=== PATIENT | female | born 1950 | race Caucasian/White ===

== ENCOUNTER 2017-08-30 05:30 | Inpatient (IN) ==
[2017-08-31] MEDS ORDERED: SODIUM CHLORIDE 0.9% 1,000 ML IV PRN (11:56)
[2017-08-31 12:19] LABS: Basophils % 0.6 % (0.0-0.8); Eosinophils # 0.1 10*3/uL (0.0-0.87); Eosinophils % 1.5 % (0.00-10.9); Hematocrit 37.4 VOL% (35.7-47.0); Hemoglobin 12.1 GM/DL (12.0-16.0); Immature Granulocytes % 0.4 %; Immature Granulocytes Absolute 0.03 #; Lymphocytes # 1.4 10*3/uL (1.4-4.0); Lymphocytes % 18.9 % (21.3-54.2); Mean Corpuscular HGB Conc 32.4 GM/DL (32-36); Mean Corpuscular Hemoglobin 30 PG (27-34); Mean Corpuscular Volume 93.7 FL (87-102); Mean Platelet Volume 12.1 FL (9.6-12.0); Monocytes # 0.4 10*3/uL (0.11-0.8); Monocytes % 5.7 % (1.7-12.7); Neutrophils # 5.2 10*3/uL (1.4-7.4); Neutrophils % 72.9 % (38.7-73.9); Platelet Count 214 T/CUMM (130-400); Red Blood Count 3.99 MC/CUMM (3.8-5.5); Red Cell Distribution Width 13.9 % (9.3-17.3); White Blood Count 7.2 T/CUMM (4-12)
[2017-08-31 12:29] LABS: INR 1.1; PT Patient Result 11.4 SECS; Partial Thromboplastin Time 24.3 SECS (0-40)
[2017-08-31 12:38] LABS: Apearance,Urine CLOUDY (Clear); Bacteria,Urine Many /HPF (Few); Bilirubin,Urine Negative (Negative); Blood, Urine Small mg/dL (Negative); Glucose,Urine (UA) 50 mg/dL (Negative); Hyaline Casts,Urine 25 /LPF (0-3); Ketones,Urine 5 mg/dL (Negative); Mucus,Urine Moderate /LPF (Occasional); Nitrite,Urine Negative (Negative); Protein,Urine 100 MG/DL; RBC,Urine 9 /HPF (0-4); Squamous Epithelial Cell,Urine Many /HPF (0-10); Urine Color Amber (Yellow); Urine Specific Gravity 1.028 (1.001-1.035); WBC,Urine 9 /HPF (0-6)
[2017-08-31 12:57] LABS: Calcium 7.8 MG/DL (8.5-10.1); Osmolality,Calculated 287.1 MOS/KG (273-304)
[2017-08-31 13:08] LABS: Potassium 2.1 MMOL/L (3.5-5.1)
[2017-08-31] MEDS ORDERED: CEFUROXIME INJ 1,500 MG in SODIUM CHLORIDE 0.9% 100 ML IV ONE (13:31)
[2017-08-31] MEDS ORDERED: SODIUM CHLORIDE 0.9% 1,000 ML IV SCH (14:00)
[2017-08-31] MEDS: POTASSIUM CHLORIDE 20 MEQ TABLET PO SCH ×7 (16:22→22:36)
[2017-08-31] MEDS ORDERED: MAGNESIUM SULF RIDER 4 GM in PREMIX 1 EACH IV ONE (17:30)
[2017-08-31] MEDS: POTASSIUM CHLORIDE RIDER 10 MEQ in PREMIX 1 EACH IV SCH ×2 (19:52→22:33)
[2017-08-31] MEDS: CHLORHEXIDINE 0.12% ORAL RINSE 60 ML BOTTLE SWISH/SPIT SCH (20:50)
[2017-08-31] MEDS: CHLORHEXIDINE 4% SOLN 118 ML BOTTLE TOP SCH (22:35)
[2017-08-31] MEDS ORDERED: hydrALAZINE 20 MG/1 ML VIAL IV ONE (23:30)
[2017-09-01] MEDS ORDERED: CLORAZEPATE 3.75 MG TABLET PO PRN (00:53)
[2017-09-01] MEDS ORDERED: ALBUTEROL/IPRATROPIUM 3 ML NEB RESP TX PRN (00:55)
[2017-09-01 01:16] LABS: Basophils % 0.5 % (0.0-0.8); Eosinophils # 0.2 10*3/uL (0.0-0.87); Eosinophils % 2.2 % (0.00-10.9); Hematocrit 39.1 VOL% (35.7-47.0); Hemoglobin 12.7 GM/DL (12.0-16.0); Immature Granulocytes % 0.5 %; Immature Granulocytes Absolute 0.04 #; Lymphocytes # 1.7 10*3/uL (1.4-4.0); Lymphocytes % 19.6 % (21.3-54.2); Mean Corpuscular HGB Conc 32.5 GM/DL (32-36); Mean Corpuscular Hemoglobin 30 PG (27-34); Mean Corpuscular Volume 91.1 FL (87-102); Monocytes # 0.5 10*3/uL (0.11-0.8); Neutrophils % 71.2 % (38.7-73.9); Platelet Count 222 T/CUMM (130-400); Red Blood Count 4.29 MC/CUMM (3.8-5.5); Red Cell Distribution Width 14.1 % (9.3-17.3); White Blood Count 8.5 T/CUMM (4-12)
[2017-09-01 01:44] LABS: Calcium 8.7 MG/DL (8.5-10.1); Potassium 2.9 MMOL/L (3.5-5.1)
[2017-09-01 03:14] LABS: ABG Base Excess 12.6 MMOL/L (-2.5-2.5); ABG HCO3 36.4 MMOL/L (20-26); ABG PCO2 42.9 MM HG (35-48); ABG PH 7.541 (7.35-7.45); ABG PO2 64.6 MM HG (80-95); Allen Test Positive
[2017-09-01] MEDS ORDERED: hydrALAZINE 20 MG/1 ML VIAL IV ONE (04:30)
[2017-09-01] MEDS ORDERED: DIAZEPAM 5 MG TABLET PO ONE (05:00)
[2017-09-01] MEDS ORDERED: FAMOTIDINE 20 MG TABLET PO ONE (05:00)
[2017-09-01] MEDS ORDERED: ONDANSETRON 4 MG/2 ML VIAL IM ONE (05:00)
[2017-09-01] MEDS ORDERED: TISSUE ADHESIVE 1 EACH APPLICATOR TOP ONE (05:24)
[2017-09-01] MEDS ORDERED: VANCOMYCIN 1,000 MG VIAL ONE (05:24)
[2017-09-01] MEDS ORDERED: PAPAVERINE 60 MG/2 ML VIAL ONE (05:24)
[2017-09-01 07:50] LABS: ABG Base Excess 9.9 MMOL/L (-2.5-2.5); ABG HCO3 33.7 MMOL/L (20-26); ABG PCO2 38.2 MM HG (35-48); ABG PH 7.548 (7.35-7.45); ABG TCO2 29.8 MMOL/L (23-27); Glucose Heart Surgery 158 MG/DL (74-106); Hematocrit Heart Surgery 32.5 PERCENT (37-47); Hemoglobin Heart Surgery 10.5 G/DL (12.0-16.0); Ionized Calcium Arterial 0.98 MMOL/L (1.21-1.46); PCO2 Patient Temp Arterial 38.2 MMHG; PH Patient Temp Arterial 7.548; Patient Temperature 37 CELCIUS; Sodium Heart/CVR 146 MMOL/L (135-145)
[2017-09-01 07:51] LABS: Potassium Heart/CVR 1.9 MMOL/L (3.5-5.1)
[2017-09-01] MEDS ORDERED: AZTREONAM 2,000 MG in SYRINGE 1 EACH IV ONE (08:00)
[2017-09-01 08:15] LABS: Apearance,Urine Slightly Hazy (Clear); Bilirubin,Urine Negative (Negative); Blood, Urine Negative (Negative); Glucose,Urine (UA) 50 mg/dL (Negative); Granular Casts,Urine 1 /LPF (0-1); Hyaline Casts,Urine 35 /LPF (0-3); Ketones,Urine Negative (Negative); Mucus,Urine Occasional /LPF (Occasional); Nitrite,Urine Negative (Negative); Protein,Urine 100 MG/DL; RBC,Urine 5 /HPF (0-4); Urine Color Amber (Yellow); Urine Specific Gravity 1.024 (1.001-1.035); WBC,Urine 2 /HPF (0-6)
[2017-09-01] MEDS ORDERED: CALCIUM CHLORIDE 1,000 MG/10 ML SYRINGE IV ONE (08:26)
[2017-09-01] MEDS ORDERED: ALBUMIN 5% 12.5 GM/250 ML VIAL IV ONE (08:26)
[2017-09-01] MEDS ORDERED: PHENYLEPHRINE DRIP 0 MG/0 ML PREMIX IV ONE (08:28)
[2017-09-01 09:22] LABS: Hemoglobin Heart Surgery 6.9 G/DL (12.0-16.0); PCO2 Patient Temp Venous 30.3 MM HG; PH Patient Temp Venous 7.659; PO2 Patient Temp Venous 37.2 MM HG; Potassium Heart/CVR 2.6 MMOL/L (3.5-5.1); VBG Base Excess 11.7 MEQ/L (0-4); VBG HCO3 34.1 MEQ/L (24-28); VBG Oxygen Saturation 83.1 %; VBG PCO2 34.6 MMHG (41-51); VBG PH 7.611; VBG PO2 45.9 MMHG (17-40)
[2017-09-01 09:52] LABS: Hemoglobin Heart Surgery 6.7 G/DL (12.0-16.0); PCO2 Patient Temp Venous 29.4 MM HG; PO2 Patient Temp Venous 35.5 MM HG; VBG HCO3 35.6 MEQ/L (24-28); VBG Oxygen Saturation 86.2 %; VBG PH 7.613; VBG PO2 43.7 MMHG (17-40)
[2017-09-01 09:53] LABS: PH Patient Temp Venous 7.661; Potassium Heart/CVR 2.5 MMOL/L (3.5-5.1)
[2017-09-01] MEDS: CHLORHEXIDINE 4% SOLN 118 ML BOTTLE TOP SCH (10:12)
[2017-09-01] MEDS: CHLORHEXIDINE 0.12% ORAL RINSE 60 ML BOTTLE SWISH/SPIT SCH ×2 (10:12→20:36)
[2017-09-01] MEDS ORDERED: THROMBIN TOPICAL (RECOMBINANT) 5,000 UNIT VIAL TOP ONE (10:38)
[2017-09-01 10:45] LABS: ABG Base Excess 5.8 MMOL/L (-2.5-2.5); ABG HCO3 29.7 MMOL/L (20-26); ABG PCO2 36.3 MM HG (35-48); ABG PH 7.512 (7.35-7.45); ABG TCO2 26.7 MMOL/L (23-27); Glucose Heart Surgery 237 MG/DL (74-106); Hematocrit Heart Surgery 27.2 PERCENT (37-47); Hemoglobin Heart Surgery 8.8 G/DL (12.0-16.0); Ionized Calcium Arterial 1.08 MMOL/L (1.21-1.46); PCO2 Patient Temp Arterial 36.3 MMHG; PH Patient Temp Arterial 7.512; Patient Temperature 37 CELCIUS; Potassium Heart/CVR 2.9 MMOL/L (3.5-5.1); Sodium Heart/CVR 139 MMOL/L (135-145)
[2017-09-01] MEDS ORDERED: HEPARIN 10,000 UNIT/10 ML VIAL ONE (10:53)
[2017-09-01] MEDS ORDERED: PROTAMINE SULFATE 250 MG/25 ML VIAL IV ONE ×2 (10:53→11:46)
[2017-09-01] MEDS ORDERED: DEXTROSE 5% KCL 20 MEQ 20 MEQ/1,000 ML BAG IV ONE (10:53)
[2017-09-01] MEDS ORDERED: SODIUM BICARBONATE 50 MEQ/50 ML SYRINGE IV ONE (10:53)
[2017-09-01] MEDS ORDERED: ALBUMIN 25% 25 GM/100 ML VIAL IV ONE (10:53)
[2017-09-01] MEDS ORDERED: MAGNESIUM SULFATE 1 GM/2 ML VIAL ONE (10:53)
[2017-09-01] MEDS ORDERED: methylPREDNISolone SOD SUC 1,000 MG/8 ML VIAL ONE (10:53)
[2017-09-01] MEDS ORDERED: PROTAMINE SULFATE 50 MG/5 ML VIAL IV ONE ×2 (10:54→11:46)
[2017-09-01] MEDS ORDERED: FUROSEMIDE 20 MG/2 ML VIAL ONE ×2 (10:54→11:44)
[2017-09-01] MEDS ORDERED: MANNITOL 12.5 GM/50 ML VIAL IV ONE (10:54)
[2017-09-01] MEDS ORDERED: POTASSIUM CHLORIDE 20 MEQ/10 ML VIAL ONE (10:54)
[2017-09-01] MEDS ORDERED: PHENYLEPHRINE 10 MG/1 ML VIAL IV ONE ×2 (10:54→11:45)
[2017-09-01] MEDS ORDERED: DOBUTamine 500 MG/250 ML PREMIX IV ONE ×2 (11:01→11:50)
[2017-09-01] MEDS ORDERED: MIDAZOLAM 2 MG/2 ML VIAL IV PRN (11:41)
[2017-09-01] MEDS ORDERED: MAGNESIUM SULF RIDER 2 GM in PREMIX 1 EACH IV PRN (11:41)
[2017-09-01] MEDS ORDERED: SODIUM CHLORIDE 0.45% 1,000 ML IV SCH ×2 (11:41)
[2017-09-01] MEDS ORDERED: POTASSIUM CHLORIDE RIDER 10 MEQ in PREMIX 1 EACH IV PRN (11:41)
[2017-09-01] MEDS ORDERED: CHLORHEXIDINE 4% SOLN 118 ML BOTTLE TOP PRN (11:41)
[2017-09-01] MEDS ORDERED: ACETAMINOPHEN 650 MG SUPP RECTAL PRN (11:41)
[2017-09-01] MEDS ORDERED: INSULIN REGULAR 100 UNIT/ML IV PRN (11:41)
[2017-09-01] MEDS ORDERED: ONDANSETRON 4 MG/2 ML VIAL IV PRN (11:41)
[2017-09-01] MEDS ORDERED: DEXTROSE 50% 25 GM/50 ML VIAL IV PRN ×2 (11:41)
[2017-09-01] MEDS ORDERED: MAGNESIUM SULF RIDER 4 GM in PREMIX 1 EACH IV PRN (11:41)
[2017-09-01] MEDS ORDERED: POTASSIUM CHLORIDE RIDER 20 MEQ in PREMIX 1 EACH IV PRN (11:41)
[2017-09-01] MEDS ORDERED: SODIUM CHLORIDE 0.9% 250 ML IV PRN (11:41)
[2017-09-01] MEDS ORDERED: MORPHINE 10 MG/1 ML VIAL IV PRN (11:41)
[2017-09-01] MEDS ORDERED: CALCIUM CHLORIDE 1,000 MG/10 ML SYRINGE IV PRN (11:41)
[2017-09-01] MEDS ORDERED: INSULIN REGULAR DRIP 100 ML IV SCH (11:41)
[2017-09-01] MEDS ORDERED: SEVOFLURANE 1 UNIT/15 MINUTE INH ONE (11:43)
[2017-09-01] MEDS ORDERED: TRANEXAMIC ACID 1,000 MG/10 ML VIAL IV ONE (11:44)
[2017-09-01] MEDS ORDERED: MIDAZOLAM 10 MG/2 ML VIAL ONE (11:44)
[2017-09-01] MEDS ORDERED: SUFentanil 250 MCG/5 ML AMP ONE (11:44)
[2017-09-01] MEDS ORDERED: ETOMIDATE 40 MG/20 ML VIAL IV ONE (11:45)
[2017-09-01] MEDS ORDERED: NITROGLYCERIN DRIP 50 MG/250 ML BOTTLE IV ONE ×2 (11:45→13:30)
[2017-09-01] MEDS ORDERED: VECURONIUM 10 MG VIAL IV ONE (11:45)
[2017-09-01] MEDS ORDERED: CALCIUM CHLORIDE 1,000 MG/10 ML VIAL IV ONE (11:46)
[2017-09-01] MEDS ORDERED: PROPOFOL 1,000 MG/100 ML BOTTLE IV SCH ×2 (12:00→12:30)
[2017-09-01] MEDS ORDERED: DOBUTamine 500 MG/250 ML PREMIX IV SCH (12:00)
[2017-09-01 12:14] LABS: ABG Base Excess 7.3 MMOL/L (-2.5-2.5); ABG HCO3 31.1 MMOL/L (20-26); ABG Oxygen Saturation 99.1 % (95-100); ABG PCO2 39.6 MM HG (35-48); ABG PH 7.502 (7.35-7.45); ABG TCO2 28.5 MMOL/L (23-27); Glucose Heart Surgery 211 MG/DL (74-106); Hematocrit Heart Surgery 27.8 PERCENT (37-47)
[2017-09-01 12:16] LABS: Potassium Heart/CVR 2.3 MMOL/L (3.5-5.1)
[2017-09-01 12:19] LABS: Basophils % 0.2 % (0.0-0.8); Eosinophils % 0.4 % (0.00-10.9); Hematocrit 26.9 VOL% (35.7-47.0); Immature Granulocytes % 1.2 %; Immature Granulocytes Absolute 0.12 #; Lymphocytes # 0.9 10*3/uL (1.4-4.0); Lymphocytes % 9.2 % (21.3-54.2); Mean Corpuscular HGB Conc 32.7 GM/DL (32-36); Mean Corpuscular Hemoglobin 30 PG (27-34); Mean Corpuscular Volume 91.2 FL (87-102); Mean Platelet Volume 12.5 FL (9.6-12.0); Monocytes # 0.5 10*3/uL (0.11-0.8); Monocytes % 4.5 % (1.7-12.7); Neutrophils # 8.4 10*3/uL (1.4-7.4); Neutrophils % 84.5 % (38.7-73.9); Platelet Count 136 T/CUMM (130-400); White Blood Count 9.9 T/CUMM (4-12)
[2017-09-01 12:20] LABS: Hemoglobin 8.8 GM/DL (12.0-16.0); Red Blood Count 2.95 MC/CUMM (3.8-5.5)
[2017-09-01] MEDS ORDERED: POTASSIUM CHLORIDE RIDER 100 ML IV ONE (12:20)
[2017-09-01] MEDS ORDERED: POTASSIUM CHLORIDE RIDER 20 MEQ in PREMIX 1 EACH IV ONE (12:25)
[2017-09-01 12:26] LABS: INR 1.2; PT Patient Result 12.7 SECS; Partial Thromboplastin Time 27.7 SECS (0-40)
[2017-09-01 12:36] LABS: Blood Urea Nitrogen 13 MG/DL (7-18); Calcium 7.6 MG/DL (8.5-10.1); Glucose 198 MG/DL (74-106); Osmolality,Calculated 291.8 MOS/KG (273-304); Sodium 144 MMOL/L (136-145)
[2017-09-01 12:39] LABS: Potassium 2.4 MMOL/L (3.5-5.1)
[2017-09-01 12:40] LABS: Lactic Acid 3.9 MMOL/L (0.4-2.0)
[2017-09-01] MEDS: NITROGLYCERIN DRIP 50 MG/250 ML BOTTLE IV SCH (13:41)
[2017-09-01] MEDS: CLINDAMYCIN INJ 600 MG in PREMIX 1 EACH IV SCH (13:41)
[2017-09-01] MEDS: POTASSIUM CHLORIDE RIDER 20 MEQ in PREMIX 1 EACH IV SCH ×4 (13:42→19:41)
[2017-09-01] MEDS ORDERED: FUROSEMIDE 40 MG/4 ML VIAL IV ONE (13:52)
[2017-09-01 18:19] LABS: ABG Base Excess 8.9 MMOL/L (-2.5-2.5); ABG HCO3 32.7 MMOL/L (20-26); ABG Oxygen Saturation 98.1 % (95-100); ABG PCO2 45.8 MM HG (35-48); ABG PH 7.474 (7.35-7.45); ABG TCO2 30.5 MMOL/L (23-27); Glucose Heart Surgery 165 MG/DL (74-106); Hematocrit Heart Surgery 30.7 PERCENT (37-47); Hemoglobin Heart Surgery 9.9 G/DL (12.0-16.0); Potassium Heart/CVR 2.6 MMOL/L (3.5-5.1)
[2017-09-01] MEDS: ALBUMIN 5% 12.5 GM in PREMIX 1 EACH IV PRN ×2 (18:30→20:36)
[2017-09-01] MEDS: AZTREONAM 1,000 MG in SYRINGE 1 EACH IV SCH (19:32)
[2017-09-01] MEDS ORDERED: LACTATED RINGERS 1,000 ML IV SCH (23:00)
[2017-09-02] MEDS: MORPHINE 2 MG/1 ML SYRINGE IV PRN ×3 (01:32→20:22)
[2017-09-02] MEDS: CLINDAMYCIN INJ 600 MG in PREMIX 1 EACH IV SCH ×2 (01:35→13:03)
[2017-09-02 03:28] LABS: Basophils % 0.1 % (0.0-0.8); Hematocrit 27.9 VOL% (35.7-47.0); Hemoglobin 9.1 GM/DL (12.0-16.0); Immature Granulocytes % 0.7 %; Immature Granulocytes Absolute 0.12 #; Lymphocytes # 0.8 10*3/uL (1.4-4.0); Lymphocytes % 4.8 % (21.3-54.2); Mean Corpuscular HGB Conc 32.6 GM/DL (32-36); Mean Corpuscular Hemoglobin 30 PG (27-34); Mean Corpuscular Volume 91.5 FL (87-102); Mean Platelet Volume 12.8 FL (9.6-12.0); Monocytes # 0.4 10*3/uL (0.11-0.8); Monocytes % 2.4 % (1.7-12.7); Neutrophils # 15.5 10*3/uL (1.4-7.4); Platelet Count 164 T/CUMM (130-400); Red Blood Count 3.05 MC/CUMM (3.8-5.5); Red Cell Distribution Width 15.7 % (9.3-17.3); White Blood Count 16.8 T/CUMM (4-12)
[2017-09-02 03:53] LABS: Calcium 7.7 MG/DL (8.5-10.1); Osmolality,Calculated 290.7 MOS/KG (273-304); Potassium 2.6 MMOL/L (3.5-5.1)
[2017-09-02 03:57] LABS: Cholesterol < 50 MG/DL (50-200); HDL Cholesterol 22 MG/DL (40-60); Risk Ratio 2.27; Triglycerides 67 MG/DL (2-150); VLDL CHOLESTEROL 13.4 MG/DL
[2017-09-02 04:27] LABS: Band Neutrophils 1 % (0-10); Lymphocytes 5 % (20-55); Platelet Estimate Normal; Segmented Neutrophils 93 % (50-85); Total Cells Counted 100
[2017-09-02 04:28] LABS: ABG HCO3 31.8 MMOL/L (20-26); ABG PCO2 49.1 MM HG (35-48); ABG PH 7.439 (7.35-7.45); ABG TCO2 30.5 MMOL/L (23-27)
[2017-09-02] MEDS: AZTREONAM 1,000 MG in SYRINGE 1 EACH IV SCH ×2 (06:11→20:21)
[2017-09-02] MEDS ORDERED: METOPROLOL TARTRATE 5 MG/5 ML VIAL IV ONE (07:26)
[2017-09-02] MEDS: POTASSIUM CHLORIDE RIDER 20 MEQ in PREMIX 1 EACH IV SCH ×2 (07:56→09:08)
[2017-09-02] MEDS: CHLORHEXIDINE 0.12% ORAL RINSE 60 ML BOTTLE SWISH/SPIT SCH ×2 (08:01→21:47)
[2017-09-02] MEDS: ASPIRIN EC 325 MG TABLET PO SCH (08:01)
[2017-09-02] MEDS ORDERED: DEXTROSE 50% 25 GM/50 ML VIAL IV PRN (08:27)
[2017-09-02] MEDS ORDERED: GLUCAGON 1 MG VIAL IM PRN (08:27)
[2017-09-02] MEDS ORDERED: CARVEDILOL 3.125 MG TABLET PO SCH (09:00)
[2017-09-02] MEDS ORDERED: FUROSEMIDE 40 MG TABLET PO SCH (09:00)
[2017-09-02] MEDS ORDERED: INSULIN LISPRO 100 UNIT/ML SUBCUT SCH (10:00)
[2017-09-02] MEDS ORDERED: MONTELUKAST 10 MG TABLET PO SCH ×2 (10:12→21:00)
[2017-09-02] MEDS: MONTELUKAST 10 MG TABLET PO SCH ×2 (10:26→21:42)
[2017-09-02] MEDS: ALBUTEROL/IPRATROPIUM 3 ML NEB RESP TX SCH ×4 (11:00→23:30)
[2017-09-02] MEDS: INSULIN LISPRO 100 UNIT/ML SUBCUT SCH ×4 (11:50→23:22)
[2017-09-02] MEDS: SPIRONOLACTONE 25 MG TABLET PO SCH ×2 (11:51→21:43)
[2017-09-02] MEDS: POTASSIUM CHLORIDE 20 MEQ/15 ML UDCUP PO SCH ×2 (13:04→16:22)
[2017-09-02] MEDS ORDERED: FUROSEMIDE 40 MG/4 ML VIAL IV ONE ×2 (14:17→22:00)
[2017-09-02] MEDS: NITROGLYCERIN DRIP 50 MG/250 ML BOTTLE IV SCH (14:26)
[2017-09-02] MEDS: ALBUMIN 5% 12.5 GM in PREMIX 1 EACH IV PRN (14:28)
[2017-09-02] MEDS ORDERED: ALBUMIN 5% 12.5 GM in PREMIX 1 EACH IV ONE (15:50)
[2017-09-02 16:16] LABS: ABG Base Excess 5.7 MMOL/L (-2.5-2.5); ABG HCO3 29.6 MMOL/L (20-26); ABG Oxygen Saturation 95.4 % (95-100); ABG PCO2 58.2 MM HG (35-48); ABG PH 7.355 (7.35-7.45); ABG TCO2 30.3 MMOL/L (23-27)
[2017-09-02 16:20] LABS: Hematocrit 27.2 VOL% (35.7-47.0); Hemoglobin 8.5 GM/DL (12.0-16.0); Mean Corpuscular HGB Conc 31.3 GM/DL (32-36); Mean Corpuscular Hemoglobin 30 PG (27-34); Mean Corpuscular Volume 94.8 FL (87-102); Red Blood Count 2.87 MC/CUMM (3.8-5.5); White Blood Count 15.3 T/CUMM (4-12)
[2017-09-02 16:21] LABS: Basophils % 0.1 % (0.0-0.8); Immature Granulocytes % 0.5 %; Immature Granulocytes Absolute 0.08 #; Lymphocytes # 0.8 10*3/uL (1.4-4.0); Lymphocytes % 5.2 % (21.3-54.2); Monocytes # 0.7 10*3/uL (0.11-0.8); Monocytes % 4.3 % (1.7-12.7); Neutrophils # 13.8 10*3/uL (1.4-7.4); Neutrophils % 89.9 % (38.7-73.9); Platelet Count 139 T/CUMM (130-400); Red Cell Distribution Width 15.9 % (9.3-17.3)
[2017-09-02 16:55] LABS: Albumin 2.9 G/DL (3.4-5.0); Bilirubin,Total 0.4 MG/DL (0.2-1.0); Calcium 7.5 MG/DL (8.5-10.1); Osmolality,Calculated 286.4 MOS/KG (273-304); Potassium 3.5 MMOL/L (3.5-5.1); Total Protein 5.1 G/DL (6.4-8.3)
[2017-09-02 18:20] LABS: ABG Base Excess 7.1 MMOL/L (-2.5-2.5); ABG HCO3 33.1 MMOL/L (20-26); ABG Oxygen Saturation 97.4 % (95-100); ABG PCO2 55.9 MM HG (35-48); ABG PO2 107.5 MM HG (80-95); ABG TCO2 34.8 MMOL/L (23-27)
[2017-09-02] MEDS: ATORVASTATIN 40 MG TABLET PO SCH (21:44)
[2017-09-02 22:05] LABS: ABG Base Excess 5.5 MMOL/L (-2.5-2.5); ABG HCO3 29.3 MMOL/L (20-26); ABG Oxygen Saturation 90.4 % (95-100); ABG PCO2 58.5 MM HG (35-48); ABG PH 7.351 (7.35-7.45); ABG PO2 63.3 MM HG (80-95); ABG TCO2 30.1 MMOL/L (23-27)
[2017-09-03] MEDS: ALBUTEROL/IPRATROPIUM 3 ML NEB RESP TX SCH ×6 (02:05→23:16)
[2017-09-03 04:40] LABS: ABG Base Excess 6.2 MMOL/L (-2.5-2.5); ABG Oxygen Saturation 97.8 % (95-100); ABG PCO2 55.1 MM HG (35-48); ABG PH 7.378 (7.35-7.45); ABG PO2 95.9 MM HG (80-95); ABG TCO2 30.2 MMOL/L (23-27)
[2017-09-03 04:46] LABS: Basophils % 0.1 % (0.0-0.8); Hematocrit 26.6 VOL% (35.7-47.0); Hemoglobin 8.2 GM/DL (12.0-16.0); Immature Granulocytes % 0.7 %; Lymphocytes # 1.2 10*3/uL (1.4-4.0); Lymphocytes % 8.6 % (21.3-54.2); Mean Corpuscular HGB Conc 30.8 GM/DL (32-36); Mean Corpuscular Hemoglobin 30 PG (27-34); Mean Corpuscular Volume 96.7 FL (87-102); Monocytes # 0.7 10*3/uL (0.11-0.8); Monocytes % 5.3 % (1.7-12.7); Neutrophils # 11.8 10*3/uL (1.4-7.4); Neutrophils % 85.3 % (38.7-73.9); Platelet Count 136 T/CUMM (130-400); Red Blood Count 2.75 MC/CUMM (3.8-5.5); Red Cell Distribution Width 15.9 % (9.3-17.3); White Blood Count 13.9 T/CUMM (4-12)
[2017-09-03 05:03] LABS: Calcium 7.5 MG/DL (8.5-10.1); Osmolality,Calculated 286.1 MOS/KG (273-304); Potassium 3.3 MMOL/L (3.5-5.1)
[2017-09-03] MEDS: INSULIN LISPRO 100 UNIT/ML SUBCUT SCH ×5 (06:15→20:25)
[2017-09-03] MEDS ORDERED: SODIUM CHLORIDE 0.9% 1,000 ML IV PRN (08:14)
[2017-09-03] MEDS: CHLORHEXIDINE 0.12% ORAL RINSE 60 ML BOTTLE SWISH/SPIT SCH ×2 (08:56→20:27)
[2017-09-03] MEDS: ASPIRIN EC 325 MG TABLET PO SCH (08:56)
[2017-09-03] MEDS: SPIRONOLACTONE 25 MG TABLET PO SCH (08:56)
[2017-09-03] MEDS: CARVEDILOL 3.125 MG TABLET PO SCH (08:56)
[2017-09-03] MEDS ORDERED: KORLYM PO SCH (09:00)
[2017-09-03] MEDS ORDERED: FUROSEMIDE 40 MG/4 ML VIAL IV ONE (09:47)
[2017-09-03] MEDS ORDERED: SPIRONOLACTONE 25 MG TABLET PO ONE (09:47)
[2017-09-03] MEDS ORDERED: SPIRONOLACTONE 25 MG TABLET PO SCH (09:52)
[2017-09-03 11:41] LABS: Hepatitis A Ab IgM Result Negative (Negative); Hepatitis B Core IgM Quant 0.18 Index; Hepatitis B Core IgM Result Negative (Negative); Hepatitis B Surface Ag Quant < 0.10 Index; Hepatitis B Surface Ag Result Negative (Negative); Hepatitis C Virus Ab Quant 0.08 Index; Hepatitis C Virus Ab Result Negative (Negative)
[2017-09-03] MEDS ORDERED: HEPARIN 10,000 UNIT/10 ML VIAL IV PRN (12:41)
[2017-09-03] MEDS ORDERED: ALBUMIN 25% 25 GM in PREMIX 1 EACH IV PRN (12:42)
[2017-09-03] MEDS: NITROGLYCERIN DRIP 50 MG/250 ML BOTTLE IV SCH (13:09)
[2017-09-03 13:58] LABS: ABG Base Excess 3.7 MMOL/L (-2.5-2.5); ABG HCO3 27.7 MMOL/L (20-26); ABG Oxygen Saturation 95.7 % (95-100); ABG PH 7.382 (7.35-7.45); ABG PO2 78.4 MM HG (80-95); ABG TCO2 26.8 MMOL/L (23-27)
[2017-09-03] MEDS: HEPARIN 5,000 UNIT/1 ML VIAL SUBCUT SCH ×2 (15:00→20:20)
[2017-09-03 16:40] LABS: Basophils % 0.2 % (0.0-0.8); Eosinophils % 0.2 % (0.00-10.9); Hematocrit 34.6 VOL% (35.7-47.0); Hemoglobin 11.2 GM/DL (12.0-16.0); Immature Granulocytes % 0.7 %; Immature Granulocytes Absolute 0.09 #; Lymphocytes # 1.2 10*3/uL (1.4-4.0); Lymphocytes % 9.5 % (21.3-54.2); Mean Corpuscular HGB Conc 32.4 GM/DL (32-36); Mean Corpuscular Hemoglobin 29 PG (27-34); Mean Corpuscular Volume 90.1 FL (87-102); Mean Platelet Volume 12.9 FL (9.6-12.0); Monocytes # 0.7 10*3/uL (0.11-0.8); Monocytes % 5.4 % (1.7-12.7); Neutrophils # 10.7 10*3/uL (1.4-7.4); Platelet Count 135 T/CUMM (130-400); Red Blood Count 3.84 MC/CUMM (3.8-5.5); Red Cell Distribution Width 17.3 % (9.3-17.3); White Blood Count 12.7 T/CUMM (4-12)
[2017-09-03 16:54] LABS: ABG Base Excess 4.6 MMOL/L (-2.5-2.5); ABG HCO3 30.1 MMOL/L (20-26); ABG Oxygen Saturation 94.3 % (95-100); ABG PCO2 48.4 MM HG (35-48); ABG PH 7.411 (7.35-7.45); ABG PO2 73.8 MM HG (80-95); ABG TCO2 31.5 MMOL/L (23-27)
[2017-09-03 17:20] LABS: Albumin 2.9 G/DL (3.4-5.0); Bilirubin,Total 0.4 MG/DL (0.2-1.0); Calcium 7.9 MG/DL (8.5-10.1); Osmolality,Calculated 283.5 MOS/KG (273-304); Potassium 3.6 MMOL/L (3.5-5.1); Total Protein 5.4 G/DL (6.4-8.3)
[2017-09-03] MEDS: ATORVASTATIN 40 MG TABLET PO SCH (20:19)
[2017-09-03] MEDS: MONTELUKAST 10 MG TABLET PO SCH (20:20)
[2017-09-03] MEDS: ACETAMINOPHEN 325 MG TABLET PO PRN (20:20)
[2017-09-03] MEDS ORDERED: SODIUM CHLORIDE 0.9% 250 ML IV ONE (22:15)
[2017-09-03] MEDS ORDERED: AZTREONAM 2,000 MG in SYRINGE 1 EACH IV ONE (22:30)
[2017-09-03 22:40] LABS: ABG PCO2 47.8 MM HG (35-48); ABG PH 7.402 (7.35-7.45)
[2017-09-03 22:41] LABS: ABG Base Excess 4.2 MMOL/L (-2.5-2.5); ABG HCO3 28.2 MMOL/L (20-26); ABG Oxygen Saturation 94.3 % (95-100); ABG PO2 70.6 MM HG (80-95); ABG TCO2 27.1 MMOL/L (23-27)
[2017-09-03] MEDS ORDERED: SODIUM CHLORIDE 0.9% 250 ML IV SCH (23:00)
[2017-09-04] MEDS: INSULIN LISPRO 100 UNIT/ML SUBCUT SCH ×6 (00:30→21:40)
[2017-09-04] MEDS: ALBUTEROL/IPRATROPIUM 3 ML NEB RESP TX SCH ×6 (02:50→23:41)
[2017-09-04] MEDS: HEPARIN 5,000 UNIT/1 ML VIAL SUBCUT SCH ×3 (04:10→21:41)
[2017-09-04 04:19] LABS: Basophils % 0.2 % (0.0-0.8); Eosinophils # 0.1 10*3/uL (0.0-0.87); Eosinophils % 0.5 % (0.00-10.9); Hematocrit 32.5 VOL% (35.7-47.0); Hemoglobin 10.4 GM/DL (12.0-16.0); Immature Granulocytes % 0.7 %; Immature Granulocytes Absolute 0.07 #; Lymphocytes # 1.4 10*3/uL (1.4-4.0); Lymphocytes % 13.4 % (21.3-54.2); Mean Corpuscular Hemoglobin 29 PG (27-34); Mean Corpuscular Volume 91.3 FL (87-102); Mean Platelet Volume 13.4 FL (9.6-12.0); Monocytes # 0.6 10*3/uL (0.11-0.8); Monocytes % 5.8 % (1.7-12.7); Neutrophils # 8.3 10*3/uL (1.4-7.4); Neutrophils % 79.4 % (38.7-73.9); Platelet Count 126 T/CUMM (130-400); Red Blood Count 3.56 MC/CUMM (3.8-5.5); Red Cell Distribution Width 17.4 % (9.3-17.3); White Blood Count 10.5 T/CUMM (4-12)
[2017-09-04 04:49] LABS: Calcium 7.9 MG/DL (8.5-10.1); Osmolality,Calculated 285.4 MOS/KG (273-304); Potassium 3.4 MMOL/L (3.5-5.1)
[2017-09-04 06:52] LABS: ABG Base Excess 2.6 MMOL/L (-2.5-2.5); ABG HCO3 26.7 MMOL/L (20-26); ABG Oxygen Saturation 96.1 % (95-100); ABG PCO2 48.5 MM HG (35-48); ABG PH 7.376 (7.35-7.45); ABG PO2 81.1 MM HG (80-95); ABG TCO2 25.9 MMOL/L (23-27)
[2017-09-04] MEDS ORDERED: KORLYM PO SCH (09:30)
[2017-09-04] MEDS: CLINDAMYCIN INJ 600 MG in PREMIX 1 EACH IV SCH ×2 (10:39→18:40)
[2017-09-04] MEDS: CARVEDILOL 3.125 MG TABLET PO SCH (10:40)
[2017-09-04] MEDS: ASPIRIN EC 325 MG TABLET PO SCH (10:40)
[2017-09-04] MEDS: CHLORHEXIDINE 0.12% ORAL RINSE 60 ML BOTTLE SWISH/SPIT SCH ×2 (10:40→21:41)
[2017-09-04] MEDS: AZTREONAM 500 MG in SODIUM CHLORIDE 0.9% 100 ML IV SCH ×2 (12:00→17:44)
[2017-09-04] MEDS: POTASSIUM CHLORIDE 20 MEQ/15 ML UDCUP PO SCH ×2 (17:55→21:40)
[2017-09-04] MEDS: ACETAMINOPHEN 325 MG TABLET PO PRN (18:30)
[2017-09-04] MEDS: ATORVASTATIN 40 MG TABLET PO SCH (21:40)
[2017-09-04] MEDS: MONTELUKAST 10 MG TABLET PO SCH (21:40)
[2017-09-05] MEDS: INSULIN LISPRO 100 UNIT/ML SUBCUT SCH ×6 (00:27→21:45)
[2017-09-05] MEDS: CLINDAMYCIN INJ 600 MG in PREMIX 1 EACH IV SCH ×3 (00:32→17:35)
[2017-09-05] MEDS: AZTREONAM 500 MG in SODIUM CHLORIDE 0.9% 100 ML IV SCH ×3 (02:09→18:31)
[2017-09-05] MEDS: ALBUTEROL/IPRATROPIUM 3 ML NEB RESP TX SCH ×5 (03:34→19:02)
[2017-09-05] MEDS: HEPARIN 5,000 UNIT/1 ML VIAL SUBCUT SCH ×3 (03:44→18:31)
[2017-09-05 07:24] LABS: Basophils % 0.5 % (0.0-0.8); Eosinophils # 0.2 10*3/uL (0.0-0.87); Eosinophils % 2.2 % (0.00-10.9); Hematocrit 32.5 VOL% (35.7-47.0); Hemoglobin 10.2 GM/DL (12.0-16.0); Immature Granulocytes % 0.5 %; Immature Granulocytes Absolute 0.04 #; Lymphocytes # 1.4 10*3/uL (1.4-4.0); Lymphocytes % 15.5 % (21.3-54.2); Mean Corpuscular HGB Conc 31.4 GM/DL (32-36); Mean Corpuscular Hemoglobin 29 PG (27-34); Mean Corpuscular Volume 91.8 FL (87-102); Mean Platelet Volume 13.2 FL (9.6-12.0); Monocytes # 0.6 10*3/uL (0.11-0.8); Monocytes % 7.2 % (1.7-12.7); Neutrophils # 6.5 10*3/uL (1.4-7.4); Neutrophils % 74.1 % (38.7-73.9); Platelet Count 134 T/CUMM (130-400); Red Blood Count 3.54 MC/CUMM (3.8-5.5); Red Cell Distribution Width 16.7 % (9.3-17.3); White Blood Count 8.7 T/CUMM (4-12)
[2017-09-05 07:57] LABS: Osmolality,Calculated 278.7 MOS/KG (273-304); Potassium 3.8 MMOL/L (3.5-5.1)
[2017-09-05] MEDS: CHLORHEXIDINE 0.12% ORAL RINSE 60 ML BOTTLE SWISH/SPIT SCH ×2 (09:27→21:44)
[2017-09-05] MEDS: POTASSIUM CHLORIDE 20 MEQ/15 ML UDCUP PO SCH (09:27)
[2017-09-05] MEDS: ASPIRIN EC 325 MG TABLET PO SCH (09:28)
[2017-09-05] MEDS: CARVEDILOL 3.125 MG TABLET PO SCH (09:28)
[2017-09-05] MEDS: MONTELUKAST 10 MG TABLET PO SCH (21:44)
[2017-09-05] MEDS: ATORVASTATIN 40 MG TABLET PO SCH (21:44)
[2017-09-06] MEDS: ALBUTEROL/IPRATROPIUM 3 ML NEB RESP TX SCH ×5 (00:09→14:48)
[2017-09-06] MEDS: CLINDAMYCIN INJ 600 MG in PREMIX 1 EACH IV SCH ×2 (01:07→12:43)
[2017-09-06] MEDS: INSULIN LISPRO 100 UNIT/ML SUBCUT SCH ×4 (01:29→11:53)
[2017-09-06] MEDS: AZTREONAM 500 MG in SODIUM CHLORIDE 0.9% 100 ML IV SCH ×2 (01:40→12:43)
[2017-09-06] MEDS: HEPARIN 5,000 UNIT/1 ML VIAL SUBCUT SCH ×2 (03:19→12:44)
[2017-09-06 07:42] LABS: Calcium 8.1 MG/DL (8.5-10.1); Osmolality,Calculated 275.8 MOS/KG (273-304); Potassium 4.3 MMOL/L (3.5-5.1)
[2017-09-06 08:17] VITALS: BP 144/67
[2017-09-06] MEDS: CHLORHEXIDINE 0.12% ORAL RINSE 60 ML BOTTLE SWISH/SPIT SCH (12:42)
[2017-09-06] MEDS: ASPIRIN EC 325 MG TABLET PO SCH (14:33)
[2017-09-06] MEDS: CARVEDILOL 3.125 MG TABLET PO SCH (14:33)
[2017-09-06] MEDS ORDERED: DOCUSATE SODIUM 100 MG CAPSULE PO ONE (16:01)
[2017-09-06] MEDS ORDERED: BISACODYL 5 MG TABLET PO ONE (16:01)
== END 2017-09-06 16:41 | DRG 981 ==
LOC: N.TELEN 08-31 15:28 → N.CVR 09-01 11:14 → N.ICU 09-02 14:36 → N.TELES 09-04 15:08
PROVIDERS: ADMIT Thoracic Surgery (Cardiothoracic Vascular Surgery); ATTEND Thoracic Surgery (Cardiothoracic Vascular Surgery)

== ENCOUNTER 2021-06-30 00:18 | Inpatient (IN) ==
[2021-06-30] MEDS ORDERED: ONDANSETRON 4 MG/2 ML VIAL IV STA (00:36)
[2021-06-30] MEDS ORDERED: MORPHINE 2 MG/1 ML SYRINGE IV STA (00:36)
[2021-06-30] MEDS ORDERED: SODIUM CHLORIDE 0.9% 1,000 ML IV STA ×3 (00:36→02:41)
[2021-06-30 01:30] LABS: Basophils % 0.3 % (0.0-0.8); Eosinophils # 0.1 10*3/uL (0.0-0.87); Eosinophils % 1.3 % (0.00-10.9); Hematocrit 35.4 VOL% (35.7-47.0); Immature Granulocytes % 0.4 %; Immature Granulocytes Absolute 0.04 #; Lymphocytes # 0.5 10*3/uL (1.4-4.0); Lymphocytes % 5.7 % (21.3-54.2); Mean Corpuscular HGB Conc 31.1 GM/DL (32-36); Mean Corpuscular Volume 92.2 FL (87-102); Mean Platelet Volume 11.5 FL (9.6-12.0); Monocytes % 1.4 % (1.7-12.7); Neutrophils % 90.9 % (38.7-73.9); Platelet Count 227 T/CUMM (130-400); Red Blood Count 3.84 MC/CUMM (3.8-5.5); Red Cell Distribution Width 13.4 % (9.3-17.3); White Blood Count 9.3 T/CUMM (4-12)
[2021-06-30 01:51] LABS: Alanine Aminotransferase 47 U/L (13-56); Albumin 3.1 G/DL (3.4-5.0); Alkaline Phosphatase 178 U/L (45-117); Amylase 27 U/L (25-115); Aspartate Amino Transferase 87 U/L (0-37); Blood Urea Nitrogen 113 MG/DL (7-18); Calcium 9.4 MG/DL (8.5-10.1); Carbon Dioxide 24 MMOL/L (21-32); Estimated Glom Filtration Rate 17 ML/MIN; Glucose 286 MG/DL (74-106); Osmolality,Calculated 313.2 MOS/KG (273-304); Potassium 3.8 MMOL/L (3.5-5.1); Sodium 134 MMOL/L (136-145); Total Protein 7.1 G/DL (6.4-8.2)
[2021-06-30 01:59] LABS: Band Neutrophils 2 % (0-10); Eosinophils 1 % (0-10); Lymphocytes 4 % (20-55); Segmented Neutrophils 92 % (50-85); Total Cells Counted 100
[2021-06-30] MEDS ORDERED: ENOXAPARIN 60 MG/0.6 ML SYRINGE SUBCUT STA (02:03)
[2021-06-30] MEDS ORDERED: ASPIRIN CHEW 81 MG TABLET PO STA (02:03)
[2021-06-30 02:04] LABS: Hypochromia 1+; Ovalocytes 1+; Platelet Estimate Normal
[2021-06-30] MEDS ORDERED: NOREPINEPHRINE 8 MG in SODIUM CHLORIDE 0.9% 242 ML IV PRN (02:53)
[2021-06-30] MEDS ORDERED: MAGNESIUM SULF RIDER 2 GM/50 ML PREMIX IV ONE (02:54)
[2021-06-30] MEDS ORDERED: MEROPENEM 1,000 MG in SODIUM CHLORIDE 0.9% 100 ML IV ONE (04:39)
[2021-06-30] MEDS ORDERED: SODIUM CHLORIDE 0.9% 1,000 ML IV ONE (04:42)
[2021-06-30] MEDS ORDERED: ONDANSETRON 4 MG/2 ML VIAL IV PRN (04:43)
[2021-06-30] MEDS ORDERED: ALBUTEROL 2.5 MG/3 ML NEB RESP TX PRN (04:43)
[2021-06-30] MEDS ORDERED: metroNIDAZOLE INJ 500 MG/100 ML PREMIX IV SCH (05:00)
[2021-06-30] MEDS ORDERED: PANTOPRAZOLE 40 MG VIAL IV SCH (05:00)
[2021-06-30] MEDS ORDERED: SODIUM CHLORIDE 0.9% 1,000 ML IV SCH (05:00)
[2021-06-30 05:12] LABS: Bilirubin,Urine Negative (Negative); Blood, Urine Small mg/dL (Negative); Glucose,Urine (UA) Negative (Negative); Ketones,Urine Negative (Negative); Nitrite,Urine Negative (Negative); Protein,Urine Negative; RBC,Urine 2 /HPF (0-4); Squamous Epithelial Cell,Urine Many /HPF (0-10); Urine Appearance CLOUDY (Clear); Urine Color Yellow (Yellow); Urine Specific Gravity 1.009 (1.001-1.035); Urine Urobilinogen < 2.0 EU/DL (<2.0)
[2021-06-30 05:30] LABS: INR 1.2; PT Patient Result 13.2 SECS (10.5-12.0)
[2021-06-30 05:59] LABS: ABG Base Excess -18.1 MMOL/L (-2.5-2.5); ABG HCO3 11.1 MMOL/L (20-26); ABG Oxygen Saturation 95.3 % (95-100); ABG PCO2 28.8 MM HG (35-48); ABG TCO2 9.3 MMOL/L (23-27)
[2021-06-30 06:03] LABS: ABG PH 7.147 (7.35-7.45)
[2021-06-30] MEDS ORDERED: MIDAZOLAM 10 MG/2 ML VIAL ONE (06:15)
[2021-06-30] MEDS ORDERED: MIDAZOLAM 100 MG in SODIUM CHLORIDE 0.9% 80 ML IV PRN (06:17)
[2021-06-30 06:37] VITALS: BP 65/45
[2021-06-30] MEDS ORDERED: MEROPENEM 500 MG in SODIUM CHLORIDE 0.9% 100 ML IV SCH (17:00)
== END 2021-06-30 06:28 | disposition expired | DRG 871 ==
LOC: N.ED 00:18 → N.EDINP 04:26 → N.ED 06:28
PROVIDERS: ADMIT Family Medicine; ATTEND Family Medicine